=== PATIENT | male | born 1970 | race Caucasian/White ===

== ENCOUNTER → 2022-04-20 | Outpatient (CLI) | payer OTHER | END | disposition home or self-care (01) | LOC: MSR 08:32 | PROVIDERS: ATTEND Chiropractor | DX: I07.1 Rheumatic tricuspid insufficiency (principal); M19.042 Primary osteoarthritis, left hand; M16.0 Bilateral primary osteoarthritis of hip; I10 Essential (primary) hypertension; I25.10 Atherosclerotic heart disease of native coronary artery without angina pectoris; M06.9 Rheumatoid arthritis, unspecified; R07.9 Chest pain, unspecified; R00.0 Tachycardia, unspecified; M16.32 Unilateral osteoarthritis resulting from hip dysplasia, left hip | CPT/HCPCS: 73503; 86431; 93306 ==